=== PATIENT | male | born 1955 | race African-American/Black ===

== ENCOUNTER 2018-08-26 08:08 | Emergency (ER) | payer MEDICAID ==
[~2018-08-26] VITALS: Ht 175.3 cm; Wt 78.0 kg
[2018-08-26] MEDS ORDERED: IBUPROFEN 600MG TABLET PO ONE (08:45)
[2018-08-26 12:00] VITALS: BP 131/60
== END 2018-08-26 12:26 | disposition home or self-care (01) ==
LOC: ER 08:59
DX: M25.511 Pain in right shoulder (principal)
CPT/HCPCS: 73030; 93005; 99284